=== PATIENT | female | born 1970 | race Asian ===

== ENCOUNTER 2019-12-09 14:12 | Outpatient (CLI) | payer BC ==
--- NOTE | 2019-12-10 14:40 | MMO ---
Bilateral MAMMO Bilat Diag [facility]. CLINICAL HISTORY: Patient is 49 years old and is seen for diagnostic exam and bloody discharge in the right breast. The patient has no family history of breast cancer. The patient has no personal history of cancer. VIEWS: The views performed were: bilateral craniocaudal with tomosynthesis; bilateral mediolateral oblique with tomosynthesis; and bilateral mediolateral with tomosynthesis. FILMS COMPARED: The present examination has been compared to prior imaging studies performed at [facility] on 03/22/2017, and at [facility] on 11/13/2018. This study has been interpreted with the assistance of computer-aided detection. MAMMOGRAM FINDINGS: The breasts are extremely dense, which may lower the sensitivity of mammography. There are stable benign appearing calcifications seen in both breasts. There are no suspicious masses, suspicious calcifications, or new areas of architectural distortion. IMPRESSION: THERE IS NO MAMMOGRAPHIC EVIDENCE OF MALIGNANCY. THE PATIENT HAS HAD BLOODY NIPPLE DISCHARGE FOR OVER 3 YEARS. AN MRI OF THE BREASTS IS RECOMMENDED FOR EVALUATION OF HER NIPPLE DISCHARGE. A ROUTINE FOLLOW-UP MAMMOGRAM IN 1 YEAR IS RECOMMENDED. THE RESULTS OF THIS EXAM WERE SENT TO THE PATIENT. ACR BI-RADS Category 2 - Benign finding MAMMOGRAPHY NOTE: 1. A negative mammogram report should not delay a biopsy if a dominant of clinically suspicious mass is present. 2. Approximately 10% to 15% of breast cancers are not detected by mammography. 3. Adenosis and dense breasts may obscure an underlying neoplasm. Reported by: JADE MOTLEY MD Electonically Signed: [id number]
== END 2019-12-09 14:13 | disposition home or self-care (01) ==
LOC: BICMAMMO 14:12
PROVIDERS: ATTEND Physician Assistant
DX: N64.52 Nipple discharge (principal)
CPT/HCPCS: 77066; G0279

== ENCOUNTER 2020-01-14 12:35 | Outpatient (CLI) | payer BC ==
[2020-01-14] MEDS ORDERED: Magnevist 469MG/ML 20 ML VIAL ONE (15:45)
--- NOTE | 2020-01-16 09:43 | MRI ---
MRI OF THE BILATERAL BREASTS WITHOUT AND WITH CONTRAST: COMPARISON: Mammograms 12/09/2019 and 11/08/2018. HISTORY: Intermittent nipple discharge for 10 years. Sometimes it is clear and sometimes bloody. The patient denies a palpable mass. TECHNIQUE: Multiplanar, multisequence MR images were obtained were obtained of the bilateral breasts without and with IV contrast. This exam was evaluated on the [employer] work station where 3D MIP reformats and co ntrast-enhanced images were generated. FINDINGS: Heterogeneous breast tissue is seen in the breasts. No significant background parenchymal enhancemen t is seen. There is an area of non-mass enhancement in the central aspect of the right breast, sligh tly medial. This occurs over a length of 1.3 cm. This demonstrates a slow gradual enhancement curve without significant plateau or washout. No other abnormal enhancement is seen in either breast. No axillary adenopathy is seen. No internal mammary lymph nodes are identified. IMPRESSION: BIRADS category 3 - probably benign finding. The area of non-mass enhancement in the central right b reast has a benign enhancement curve. A followup MRI in 6 months is recommended to ensure stability.
== END 2020-01-14 12:36 | disposition home or self-care (01) ==
LOC: BICMRI 12:35
PROVIDERS: ATTEND Physician Assistant
DX: N64.52 Nipple discharge (principal); N64.89 Other specified disorders of breast
CPT/HCPCS: A9579; C8908

== ENCOUNTER 2020-12-29 13:24 | Outpatient (CLI) | payer BC | END 2020-12-29 13:25 | disposition home or self-care (01) | LOC: BICMAMMO 13:24 | PROVIDERS: ATTEND Surgery | DX: Z12.31 Encounter for screening mammogram for malignant neoplasm of breast (principal) | CPT/HCPCS: 77063; 77067 ==

== ENCOUNTER 2021-05-28 13:59 | Outpatient (CLI) | payer BC | END 2021-05-28 14:00 | disposition home or self-care (01) | LOC: BICMRI 13:59 | PROVIDERS: ATTEND Surgery | DX: N64.52 Nipple discharge (principal) | CPT/HCPCS: A9577; C8908 ==

== ENCOUNTER 2021-11-23 13:31 | Outpatient (CLI) | payer BC ==
[2021-11-23 14:10] LABS: Estimated GFR-MDRD - POC Greater than 90
== END 2021-11-23 13:32 | disposition home or self-care (01) ==
LOC: BICMRI 13:31
PROVIDERS: ATTEND Surgery
DX: R92.8 Other abnormal and inconclusive findings on diagnostic imaging of breast (principal)
CPT/HCPCS: 82565; A9577; C8908

== ENCOUNTER 2021-11-30 09:37 | Outpatient (CLI) | payer BC | END 2021-11-30 09:38 | disposition home or self-care (01) | LOC: BICMAMMO 09:37 | PROVIDERS: ATTEND Surgery | DX: R92.8 Other abnormal and inconclusive findings on diagnostic imaging of breast (principal); N63.10 Unspecified lump in the right breast, unspecified quadrant | CPT/HCPCS: 77066; G0279 ==

== ENCOUNTER 2023-08-31 13:36 | Outpatient (CLI) | payer BC | END 2023-08-31 13:37 | disposition home or self-care (01) | LOC: BICMAMMO 13:36 | PROVIDERS: ATTEND Physician Assistant | DX: R92.8 Other abnormal and inconclusive findings on diagnostic imaging of breast (principal); N64.9 Disorder of breast, unspecified | CPT/HCPCS: 77066; G0279 ==

== ENCOUNTER → 2023-09-20 | Day surgery (SDC) | payer BC | LOC: BICULT 12:16 | PROVIDERS: ATTEND Physician Assistant | PROC: 0HB5XZX Excision of Chest Skin, External Approach, Diagnostic (ICD-10-PCS; principal; 2023-09-20) | DX: N63.15 Unspecified lump in the right breast, overlapping quadrants (principal); N64.89 Other specified disorders of breast; R92.8 Other abnormal and inconclusive findings on diagnostic imaging of breast | CPT/HCPCS: 19083; 88305; 88341; 88342 ==

== ENCOUNTER 2025-07-10 14:10 | Outpatient (CLI) | payer BC | END 2025-07-10 14:11 | disposition home or self-care (01) | LOC: SCSBT 14:10 | PROVIDERS: ATTEND Internal Medicine | DX: Z13.820 Encounter for screening for osteoporosis (principal); C50.211 Malignant neoplasm of upper-inner quadrant of right female breast; M85.89 Other specified disorders of bone density and structure, multiple sites; Z79.818 Long term (current) use of other agents affecting estrogen receptors and estrogen levels | CPT/HCPCS: 77080 ==